=== PATIENT | female | born 1955 | race African-American/Black ===

== ENCOUNTER 2016-12-04 22:34 | Observation (INO) | payer OTHER ==
[~2016-12-04 22:34] MED LIST: ADVAI250I PO; BACT800T5 PO; LISI-360 PO; MSIR15 PO; PREV30CA36 PO; VENTAER INH; ZOFR4TAB3 SL
[2016-12-04 22:37] VITALS: BP 187/97; PULSE 97; RESP 24; TEMP 99.1; O2SAT 99
[2016-12-04] MEDS ORDERED: SYMB160A INH (23:51)
[2016-12-04] MEDS ORDERED: LISI10TA3 PO (23:51)
[2016-12-04] MEDS ORDERED: VENTAER INH (23:51)
[2016-12-05] VITALS (13 sets, daily range): BP systolic 127–186; BP diastolic 74–94; PULSE 76–96; RESP 16–28; TEMP 97.5–98.6; O2SAT 93–98
[2016-12-05] MEDS ORDERED: ASPIRIN 81 MG CHEW TAB PO ONE
[2016-12-05] MEDS ORDERED: NITROGLYCERIN 0.4 MG SL 25 TABS/BTL SL ONE
[2016-12-05] MEDS ORDERED: NITROGLYCERIN 2% OINT 1 GM PACKET TOP ONE
--- NOTE | 2016-12-05 00:02 | PD ---
HPI Chief Complaint: Chest Pain Time Seen by Provider: 23:54 Travel History International Travel<30 days: No Contact w/Intl Traveler<30days: No Traveled to known affect area: No History of Present Illness HPI The patient is a 61 year old female who presents to the [facility] emergency department with a history of 5 weeks of congestion, shortness of breath, and chest tightness that is progressively getting worse over time. She additionally reports having 2 weeks of lower extremity swelling that began 2 weeks ago. She denies having any associated redness or pain in her calves. She denies having any prior history of DVT or PE. She has had intermittent sharp chest pain. The last episode was night. Aspirin and Prilosec were no help. It lasted for 8 minutes. She has had a cough that is mainly dry however occasionally productive of yellow to green sputum. She denies any recent antibiotic use. She last had a stress test 5-6 years ago. The patient denies any history of fever, cough, congestion, neck pain, chest pain, shortness of breath, abdominal pain, vomiting, urinary symptoms, or neurologic symptoms. Diarrhea all day 3 days ago that has since resolved. The patient also reports on review of systems having urinary frequency without dysuria or urinary urgency. PCP: Dr. Peterson. [facility] Past Medical History Narrative Medical The patient's past medical history is significant for asthma, hypertension, acid reflux, arthritis, chronic pain- back. History of intubation for COPD exacerbation in 2011, continued daily tobacco use. Arthritis: Yes Asthma: Yes Autoimmune Disease: No Blood Disorders: No Anxiety: No Depression: No Heart Rhythm Problems: No Cancer: No Cardiovascular Problems: No High Cholesterol: Yes Chest Pain: No Congestive Heart Failure: No COPD: Yes Cerebrovascular Accident: No Diabetes: No Diminished Hearing: No Endocrine: No GERD: Yes Genitourinary: No Headaches: No Hepatitis: No Hiatal Hernia: No Hypertension: Yes Immune Disorder: No Kidney Stones: No Musculoskeletal: Yes (CHRONIC PAIN) Neurologic: No Psychiatric: No Reproductive: Yes (HYSTERECTOMY) Respiratory: Yes Myocardial Infarction: No Renal Failure: No Seizures: No Sickle Cell Disease: No Sleep Apnea: No Thyroid Disease: No Ulcer: No PNEUMOCCOCAL Vaccine (Year): 2 Menopausal: Yes Past Surgical History Narrative Surgical The patient's past surgical history is significant for hysterectomy, right femur and hip sx. Abdominal Surgery: No AICD: No Arteriovenous Shunt: No Cardiac Surgery: No Ear Surgery: No Endocrine Surgery: No Eye Surgery: No Genitourinary Surgery: No Gynecologic Surgery: Yes (VAG. HYSTERECTOMY 1989) Hysterectomy: Yes Insulin Pump: No Oral Surgery: Yes (TOOTH EXTRACTIONS 2000) Pacemaker: No Thoracic Surgery: No Social History Alcohol Use: No Tobacco Use: Yes (06/13 PPD) Substance Use: No Allergies-Medications (Allergen,Severity, Reaction): Coded Allergies: Solu-Medrol (Verified Allergy, Severe, Respiratory Failure, vomiting, 12/04) Reported Meds & Prescriptions Reported Meds & Active Scripts Active Prednisone 20 Mg Tab 20 Mg PO BID Levaquin (Levofloxacin) 500 Mg Tablet 1 Tab PO Q DAY 9 Days Reported Lisinopril 10 Mg Tab 10 Mg PO DAILY Symbicort Inh (Budesonide/Formoterol Fumarate) 160-4.5 Mcg/Act Aero 2 Puff INH Q12HR Ventolin Hfa 18 GM Inh (Albuterol Sulfate) 90 Mcg/Act Aer 2 Puff INH Q4H PRN Review of Systems Except as stated in HPI: all other systems reviewed are Neg General / Constitutional: Positive: Fever, Chills Eyes: No: Visual changes HENT: Positive: Congestion, No: Headaches Cardiovascular: Positive: Chest Pain or Discomfort, Dyspnea on exertion, Edema Respiratory: Positive: Cough, Shortness of Breath Gastrointestinal: Positive: Nausea, Vomiting, Diarrhea, No: Abdominal Pain Genitourinary: Positive: Frequency, No: Dysuria Musculoskeletal: No: Pain Skin: No Rash Neurologic: No: Weakness Psychiatric: No: Depression Endocrine: No: Polydipsia Hematologic/Lymphatic: No: Easy Bruising Physical Exam Narrative General: The patient is a well-developed well-nourished female in no acute distress. Head and Neck exam: Head is normocephalic atraumatic. Eyes: EOMI, pupils are equal round and reactive to light. Nose: Midline septum with pink mucous membranes Mouth: Dentition unremarkable. Moist mucus membranes. Posterior oropharynx is not erythematous. No tonsillar hypertrophy. Uvula midline. Airway patent. Neck: No palpable lymphadenopathy. No nuchal rigidity. No thyromegaly. Cardiovascular: Regular rate and rhythm without murmurs, gallops, or rubs. No pulse deficit to the extremities and simultaneous auscultation and palpation of her radial artery. Lungs: The patient has equal breath sounds bilaterally. The patient has soft expiratory wheezes audible throughout bilateral lung keating, no crackles or rhonchi. No accessory muscle use. No paroxysmal abdominal breathing. No tripoding. Abdomen: Soft, without tenderness to palpation in all 4 quadrants of the abdomen. No guarding, rebound, or rigidity. Normal bowel sounds are audible. No tenderness on palpation of McBurney's point. Negative Carroll's sign. Extremities: No clubbing or cyanosis. The patient has trace to 1+ pitting edema bilateral lower stomach. 2+ pulses in all 4 extremities. No calf tenderness on palpation. Negative Homans sign. Back: No costovertebral angle tenderness to palpation. Neurologic Exam: Grossly nonfocal. Skin Exam: No rash noted. Intact skin that is warm and dry. Data Data Last Documented VS Vital Signs Date Time Temp Pulse Resp B/P Pulse Ox O2 Delivery O2 Flow Rate FiO2 12/04/16 22:37 99.1 97 24 187/97 99 Orders Electrocardiogram (12/04/16 23:55) B-Type Natriuretic Peptide (12/04/16 23:55) Ckmb (Isoenzyme) Profile (12/04/16 23:55) Complete Blood Count With Diff (12/04/16 23:55) Comprehensive Metabolic Panel (12/04/16 23:55) D-Dimer (12/04/16 23:55) Magnesium (Mg) (12/04/16 23:55) Prothrombin Time / Inr (Pt) (12/04/16 23:55) Act Partial Throm Time (Ptt) (12/04/16 23:55) Troponin I (12/04/16 23:55) Lipase (12/04/16 23:55) Chest, Single Ap (12/04/16 23:55) Ecg Monitoring (12/04/16 23:55) Bilateral Bp Monitoring (12/04/16 23:55) Iv Access Insert/Monitor (12/04/16 23:55) Oximetry (12/04/16 23:55) Oxygen Administration (12/04/16 23:55) Aspirin Chew (Aspirin Chew) (12/05/16 00:00) Nitroglycerin 2% Oint (Nitroglycerin 2% (12/05/16 00:00) Sodium Chloride 0.9% Flush (Ns Flush) (12/05/16 00:00) Nitroglycerin Sl (Nitrostat Sl) (12/05/16 00:00) Sodium Chloride 0.9% Flush (Ns Flush) (12/05/16 00:45) Methylprednisolone So Succ Inj (Solumedr (12/05/16 00:45) Albuterol-Ipratropium Neb (Duoneb Neb) (12/05/16 00:45) Levofloxacin 750 Mg Premix Inj (Levaquin (12/05/16 00:45) CKMB (12/05/16 00:15) CKMB% (12/05/16 00:15) Admit Order (Ed Use Only) (12/05/16 02:15) Labs Laboratory Tests Test 12/05/16 00:15 White Blood Count 7.4 TH/MM3 Red Blood Count 4.04 MIL/MM3 Hemoglobin 12.1 GM/DL Hematocrit 35.7 % Mean Corpuscular Volume 88.4 FL Mean Corpuscular Hemoglobin 29.9 PG Mean Corpuscular Hemoglobin 33.9 % Concent Red Cell Distribution Width 13.7 % Platelet Count 253 TH/MM3 Mean Platelet Volume 8.9 FL Neutrophils (%) (Auto) 56.5 % Lymphocytes (%) (Auto) 27.4 % Monocytes (%) (Auto) 7.9 % Eosinophils (%) (Auto) 7.3 % Basophils (%) (Auto) 0.9 % Neutrophils # (Auto) 4.2 TH/MM3 Lymphocytes # (Auto) 2.0 TH/MM3 Monocytes # (Auto) 0.6 TH/MM3 Eosinophils # (Auto) 0.5 TH/MM3 Basophils # (Auto) 0.1 TH/MM3 CBC Comment DIFF FINAL Differential Comment Prothrombin Time 10.2 SEC Prothromb Time International 0.9 RATIO Ratio Activated Partial 26.6 SEC Thromboplast Time D-Dimer Quantitative (PE/DVT) LESS THAN 0.19 MG/L FEU Sodium Level 143 MEQ/L Potassium Level 3.5 MEQ/L Chloride Level 106 MEQ/L Carbon Dioxide Level 31.2 MEQ/L Anion Gap 6 MEQ/L Blood Urea Nitrogen 13 MG/DL Creatinine 0.91 MG/DL Estimat Glomerular Filtration 77 ML/MIN Rate Random Glucose 113 MG/DL Calcium Level 9.1 MG/DL Magnesium Level 2.1 MG/DL Total Bilirubin 0.2 MG/DL Aspartate Amino Transf 12 U/L (AST/SGOT) Alanine Aminotransferase 18 U/L (ALT/SGPT) Alkaline Phosphatase 108 U/L Total Creatine Kinase 131 U/L Creatine Kinase MB 0.8 NG/ML Troponin I LESS THAN 0.02 NG/ML B-Type Natriuretic Peptide 15 PG/ML Total Protein 7.1 GM/DL Albumin 3.4 GM/DL Lipase 204 U/L MDM Medical Decision Making Medical Screen Exam Complete: Yes Emergency Medical Condition: Yes Medical Record Reviewed: Yes Differential Diagnosis Acute coronary syndrome, versus COPD exacerbation, versus pneumonia, versus new- onset congestive heart failure, versus pulmonary embolism Narrative Course During the course of the patients emergency department visit, the patients history, examination, and differential diagnosis were reviewed with the patient. The patient had IV access obtained and blood work sent for analysis. The patient was placed on a desk monitor with oximetry and blood pressure monitoring. The patient had an EKG done on arrival. The patient's EKG reveals a sinus rhythm heart rate of 82, nonspecific T-wave abnormalities, no acute ST segment elevation or depression. The patient was initially provided aspirin 162 mg by mouth 1, sublingual nitroglycerin 1, nitroglycerin 1 inch the chest wall. The patient has a history of an allergy to Solu-Medrol, however she has tolerated prednisone while in the past. She was given prednisone 40 mg by mouth 1, Levaquin 750 IV. The patients laboratory studies were reviewed and remarkable for a white count of 7.4, hemoglobin 12.1, platelets 253 was 7.3 eosinophils, CMP is remarkable for glucose of 113, AST 12, CPK 131, MB percent 0.8, troponin I less than 0.02, BNP 15, lipase 204, PT PTT within normal limits, d-dimer less than 0.19 decreased the likelihood of pulmonary embolism in this patient with no other significant risk factors. Radiology studies were reviewed and remarkable for a chest x-ray that shows no definite infiltrate, symmetric aeration of the lungs. The patient on reexamination reports feeling improved. Regarding the patient's intermittent sharp chest pain she was offered admission to the chest pain center for rule out serial cardiac enzyme protocol followed by stress testing as she denies having any stress testing done in the last 5-6 years. She was agreeable with the plan to proceed with chest pain center admission. The patients results were discussed with the patient, including the plan of care. I explained that further testing and/ or monitoring is indicated based on the patients history, examination, and/ or laboratory findings. Therefore, I recommended admission for additional evaluation. The patient expressed understanding and was agreeable with this plan. The patient was admitted to the hospital in stable condition and sent to a bed under the care of the chest pain center. Diagnosis Primary Impression: Chest pain, rule out acute myocardial infarction Additional Impression: COPD exacerbation Admitting Information Admitting Physician Requests: Observation Scripts Prednisone 20 Mg Tab20 Mg PO BID #10 TAB Ref 0 Prov:Sandra Jacinto MD 12/05/16 Levofloxacin (Levaquin)500 Mg Tablet1 Tab PO q day 9 Days Prov:Sandra Jacinto MD 12/05/16 Sandra Jacinto MD Dec 05, 2016 00:01
--- NOTE | 2016-12-05 00:20 | RADRPT ---
EXAM DATE/TIME: 12/04/2016 23:52 [facility] COMPARISON: CHEST SINGLE AP, June 16, 2013, 21:32. CHEST SINGLE AP, November 10, 2013, 20:39. INDICATIONS : Chest pain and difficulty breathing x 1 week. MEDICAL HISTORY : Chronic obstructive pulmonary disease. Gastroesophageal reflux disease. Hypertension. Asthma SURGICAL HISTORY : Hysterectomy. ENCOUNTER: Initial ACUITY: 1 week PAIN SCORE: 7/10 LOCATION: Bilateral chest FINDINGS: A single view of the chest demonstrates the lungs to be symmetrically aerated without evidence of mas s, infiltrate or effusion. The cardiomediastinal contours are unremarkable. Osseous structures are intact. Image quality is compromised by body habitus. CONCLUSION: No definite infiltrates seen. Symmetric aeration of the lungs. Kamar Blake MD on December 05, 2016 at 0:17 Board Certified Radiologist. This report was verified electronically.
[2016-12-05 00:34] LABS: AUTOMATED NEUTROPHIL # 4.2 TH/MM3 (1.8-7.7); BASOPHIL # 0.1 TH/MM3 (0-0.2); BASOPHIL % 0.9 % (0.0-2.0); EOSINOPHIL # 0.5 TH/MM3 (0-0.4); EOSINOPHIL % 7.3 % (0.0-4.0); HEMATOCRIT 35.7 % (35.0-46.0); HEMO FLAGS DIFF FINAL; LYMPH % 27.4 % (9.0-44.0); MEAN CELL VOLUME 88.4 FL (80.0-100.0); MEAN CORPUSCULAR HEMOGLOBIN 29.9 PG (27.0-34.0); MEAN CORPUSCULAR HGB CONC 33.9 % (32.0-36.0); MONO % 7.9 % (0.0-8.0); NEUT % 56.5 % (16.0-70.0); PLATELET COUNT 253 TH/MM3 (150-450); RED BLOOD COUNT 4.04 MIL/MM3 (4.00-5.30); RED CELL DISTRIBUTION WIDTH 13.7 % (11.6-17.2); WHITE BLOOD COUNT 7.4 TH/MM3 (4.0-11.0)
[2016-12-05 00:45] LABS: APTT (PATIENT) 26.6 SEC (24.3-30.1); INTERNATIONAL NORMALIZED RATIO 0.9 RATIO; PROTHROMBIN TIME - PATIENT 10.2 SEC (9.8-11.6)
[2016-12-05] MEDS ORDERED: LEVOFLOXACIN 750 MG PREMIX INJ 150 ML IV ONE (00:45)
[2016-12-05] MEDS ORDERED: SODIUM CHLORIDE 0.9% FLUSH 10 ML FLUSH IVF PRN (00:45)
[2016-12-05] MEDS ORDERED: methylPREDNISolone SOD SUCC 125 MG/2 ML VIAL IVP ONE (00:45)
[2016-12-05 00:53] LABS: ANION GAP 6 MEQ/L (5-15); AST (GOT) 12 U/L (15-37); BICARBONATE 31.2 MEQ/L (21.0-32.0); BLOOD UREA NITROGEN 13 MG/DL (7-18); CHLORIDE 106 MEQ/L (98-107); GLOMERULAR FILTRATION RATE 77 ML/MIN (>89); MAGNESIUM 2.1 MG/DL (1.5-2.5); POTASSIUM 3.5 MEQ/L (3.5-5.1); SODIUM (NA) 143 MEQ/L (136-145)
[2016-12-05] MEDS: SODIUM CHLORIDE 0.9% FLUSH 10 ML FLUSH IVF PRN ×2 (00:54→02:27)
[2016-12-05] MEDS: RESP: ALBUTEROL 2.5 MG/IPRATROPIUM 0.5 MG NEB (SCH) INH ×2 (00:55→00:56)
[2016-12-05 00:58] LABS: ALKALINE PHOSPHATASE 108 U/L (45-117); ALT (GPT) 18 U/L (10-53); CREATINE KINASE 131 U/L (26-192); TOTAL BILIRUBIN ADULT 0.2 MG/DL (0.2-1.0)
[2016-12-05 01:11] LABS: CKMB 0.8 NG/ML (0.5-3.6)
[2016-12-05] MEDS ORDERED: LEVA500T20 PO (02:17)
[2016-12-05] MEDS ORDERED: PRED20 PO (02:19)
[2016-12-05] MEDS ORDERED: predniSONE 20 MG TAB PO ONE (02:30)
[2016-12-05] MEDS ORDERED: SODIUM CHLORIDE 0.9% FLUSH 10 ML FLUSH IV FLUSH PRN (03:45)
[2016-12-05] MEDS ORDERED: ONDANSETRON HCL 4 MG/2 ML VIAL IV PRN (03:45)
[2016-12-05] MEDS ORDERED: ACETAMINOPHEN 500 MG CPLT PO PRN (03:45)
[2016-12-05 04:32] LABS: CREATINE KINASE 116 U/L (26-192)
[2016-12-05 04:45] LABS: CKMB 0.7 NG/ML (0.5-3.6)
[2016-12-05 07:39] LABS: CREATINE KINASE 121 U/L (26-192)
[2016-12-05 07:51] LABS: CKMB 0.8 NG/ML (0.5-3.6)
[2016-12-05] MEDS ORDERED: RESP: ALBUTEROL 2.5 MG/IPRATROPIUM 0.5 MG NEB (PRN) INH (08:00)
[2016-12-05] MEDS ORDERED: RESP: ALBUTEROL 2.5 MG/IPRATROPIUM 0.5 MG NEB (SCH) INH ONE (08:00)
[2016-12-05] MEDS ORDERED: amLODIPine BESYLATE 5 MG TAB PO SCH (09:00)
[2016-12-05] MEDS ORDERED: cloNIDine HCL 0.1 MG TAB PO PRN ×2 (09:00→11:45)
--- NOTE | 2016-12-05 09:04 | HHI.HP ---
[facility] Primary Care Physician Juan C Peterson MD Chief Complaint Shortness of breath History of Present Illness This is a 61-year-old female that presents to ED with a stated complaint of "I' m having problems with my respiratory." States that for the last 2 months she has had shortness breath wheezing and tightness in her chest. She was seen by her primary care physician Dr. Peterson and has inhalers and nebulizers. There is brief improvement in her symptoms while using these. She has an occasional cough but states it is nonproductive. States that she has had history of asthma. Patient still smokes cigarettes. She is smoking one third pack of cigarettes daily. Denies recent fevers or chills. Denies recent travel. She does not use oxygen at home. Review of Systems General: Patient denies fevers, chills recent, and recent travel HEENT: Patient denies headache, sore throat, difficulty swallowing. Cardiovascular: Has the chest discomfort as mentioned above. Denies sensation of heart beating rapidly or irregularly. No syncope. Denies diaphoresis. Respiratory: Patient has been short of breath. She has occasional nonproductive cough. She has been wheezing which is briefly improved with inhaler and nebulizer. Denies hemoptysis. GI: Patient denies nausea, vomiting, diarrhea, abdominal pain, bloody stools. Musculoskeletal: Patient denies joint pain or edema. Denies calf pain or edema. Neurovascular: Patient denies numbness, tingling, weakness in extremities. Denies headache. Endocrine: Denies polyuria and polydipsia. Hematologic: Denies easy bruising. Skin: Denies rash or itching. Past Family Social History Allergies: Coded Allergies: Solu-Medrol (Verified Allergy, Severe, Respiratory Failure, vomiting, 12/04) Past Medical History Asthma, hypertension, and tobacco abuse. Denies diabetes, CAD, and hyperlipidemia. Past Surgical History Noncontributory. Reported Medications Reported Meds & Active Scripts Active Reported Lisinopril 10 Mg Tab 10 Mg PO DAILY Symbicort Inh (Budesonide/Formoterol Fumarate) 160-4.5 Mcg/Act Aero 2 Puff INH Q12HR Ventolin Hfa 18 GM Inh (Albuterol Sulfate) 90 Mcg/Act Aer 2 Puff INH Q4H PRN Active Ordered Medications Current Medications Medications (Trade) Dose Ordered Sig/Jae Route Start Time Stop Time Status Last Admin (NS Flush) 2 ml UNSCH PRN IVF 12/05/16 00:00 12/05/16 02:27 (NS Flush) 2 ml UNSCH PRN IVF 12/05/16 00:45 (NS Flush) 2 ml UNSCH PRN IV FLUSH 12/05/16 03:45 (NS Flush) 2 ml BID IV FLUSH 12/05/16 09:00 (Tylenol) 500 mg Q4H PRN PO 12/05/16 03:45 (Zofran Inj) 4 mg Q6H PRN IV 12/05/16 03:45 (Protonix) 40 mg DAILY PO 12/05/16 09:00 (Deltasone) 20 mg BID PO 12/05/16 09:00 Family History Denies family history of CAD. Social History Patient smokes one third pack of cigarettes daily. Denies alcohol or illicit drugs. Physical Exam Vital Signs Vital Signs Date Time Temp Pulse Resp B/P Pulse Ox O2 Delivery O2 Flow Rate FiO2 12/05/16 08:48 97.5 79 18 183/94 95 12/05/16 08:23 95 21 12/05/16 06:53 97.5 78 20 186/92 94 Room Air 12/05/16 06:50 76 16 150/78 95 12/05/16 04:00 81 18 142/74 96 Room Air 12/05/16 04:00 93 12/05/16 00:00 84 18 143/78 96 Room Air 12/04/16 22:37 99.1 97 24 187/97 99 Physical Exam GENERAL: This is a well-nourished, well-developed patient, in no apparent distress. Patient speaks in clear complete sentences. Patient is pleasant. HEENT: Head is atraumatic and normocephalic. Neck is supple without lymphadenopathy and trachea is midline. No JVD or carotid bruits. CARDIOVASCULAR: Regular rate and rhythm without murmurs, gallops, or rubs. RESPIRATORY: There are expiratory wheezing with decreased air movement at the bases. Also scattered rhonchi. No rales. No use of accessory muscles. GASTROINTESTINAL: Abdomen is nontender, nondistended. Abdomen soft. No obvious pulsatile mass or bruit. No CVA tenderness. Strong femoral pulses bilaterally. Normal bowel sounds in all quadrants. MUSCULOSKELETAL: Patient is moving upper and lower extremities freely. No calf tenderness or edema, no Homans sign. Strong pulses in upper and lower extremities. NEUROLOGICAL: Patient is alert and oriented. Cranial nerves 2-12 are grossly intact. No focal deficits and speech is clear. SKIN: No rash and turgor is normal. Laboratory Laboratory Tests Test 12/05/16 12/05/16 12/05/16 00:15 04:00 06:50 White Blood Count 7.4 Red Blood Count 4.04 Hemoglobin 12.1 Hematocrit 35.7 Mean Corpuscular Volume 88.4 Mean Corpuscular Hemoglobin 29.9 Mean Corpuscular Hemoglobin 33.9 Concent Red Cell Distribution Width 13.7 Platelet Count 253 Mean Platelet Volume 8.9 Neutrophils (%) (Auto) 56.5 Lymphocytes (%) (Auto) 27.4 Monocytes (%) (Auto) 7.9 Eosinophils (%) (Auto) 7.3 Basophils (%) (Auto) 0.9 Neutrophils # (Auto) 4.2 Lymphocytes # (Auto) 2.0 Monocytes # (Auto) 0.6 Eosinophils # (Auto) 0.5 Basophils # (Auto) 0.1 CBC Comment DIFF FINAL Differential Comment Prothrombin Time 10.2 Prothromb Time International 0.9 Ratio Activated Partial 26.6 Thromboplast Time D-Dimer Quantitative (PE/DVT) LESS THAN 0.19 Sodium Level 143 Potassium Level 3.5 Chloride Level 106 Carbon Dioxide Level 31.2 Anion Gap 6 Blood Urea Nitrogen 13 Creatinine 0.91 Estimat Glomerular Filtration 77 Rate Random Glucose 113 Calcium Level 9.1 Magnesium Level 2.1 Total Bilirubin 0.2 Aspartate Amino Transf 12 (AST/SGOT) Alanine Aminotransferase 18 (ALT/SGPT) Alkaline Phosphatase 108 Total Creatine Kinase 131 116 121 Creatine Kinase MB 0.8 0.7 0.8 Troponin I LESS THAN 0.02 LESS THAN 0.02 LESS THAN 0.02 B-Type Natriuretic Peptide 15 Total Protein 7.1 Albumin 3.4 Lipase 204 Result Diagram: 12/05/16 0015 12/05/16 0015 Imaging Last 48 hours Impressions Chest X-Ray 12/04/16 [id number] Signed Impressions: Service Date/Time: Sunday, December 04, 2016 23:52 - CONCLUSION: No definite infiltrates seen. Symmetric aeration of the lungs. Kamar Blake MD Course EKGs have sinus rhythm without significant ST segment depressions or elevations. Assessment and Plan Assessment and Plan * COPD exacerbation: Patient has been seen by Dr. Jose Luis Wilson of cardiology in the chest pain center. Her symptoms to be related to respiratory issues. She was given breathing treatments and steroids in the ED. She will need around -the-clock steroid and nebulizers as well as when necessary meds to help clear up her lungs. Patient was admitted to [place] services at this time. * Hypertension: Patient states that she takes lisinopril but does not really think it is working. We will switch to amlodipine have when necessary Catapres. * Tobacco abuse: Patient has been counseled on the importance of smoking cessation. Brennan Rivas Dec 05, 2016 09:04
[2016-12-05] MEDS: PANTOPRAZOLE SOD 40 MG DELAYED RELEASE TAB PO SCH (09:16)
[2016-12-05] MEDS: SODIUM CHLORIDE 0.9% FLUSH 10 ML FLUSH IV FLUSH SCH ×2 (09:16→20:16)
[2016-12-05] MEDS: predniSONE 20 MG TAB PO SCH ×2 (09:16→20:16)
[2016-12-05] MEDS ORDERED: AZITHROMYCIN 250 MG TAB PO ONE (11:45)
--- NOTE | 2016-12-05 11:51 | HHI.PR ---
Subjective Remarks Follow-up for shortness breath. The patient reports history of shortness of breath with cough and chest tightness for the past 5 weeks. She denies any treatment other than her home inhalers. She does continue to smoke, though states she is trying to quit. She states occasionally she has a cough that is productive with yellow sputum, but is not able to cough much up. She does complain of chest discomfort whenever she coughs. She reports that in 2011 she states that Solu-Medrol "to occur under", but does state that it may have "reacted with the morphine". She does not follow with a automobile damage appraiser. Objective Vitals Vital Signs Date Time Temp Pulse Resp B/P Pulse Ox O2 Delivery O2 Flow Rate FiO2 12/05/16 08:48 97.5 79 18 183/94 95 12/05/16 08:23 95 21 12/05/16 06:53 97.5 78 20 186/92 94 Room Air 12/05/16 06:50 76 16 150/78 95 12/05/16 04:00 81 18 142/74 96 Room Air 12/05/16 04:00 93 12/05/16 00:00 84 18 143/78 96 Room Air 12/04/16 22:37 99.1 97 24 187/97 99 Result Diagram: 12/05/16 0015 12/05/16 0015 Imaging Last Impressions Chest X-Ray 12/04/16 9636 Signed Impressions: Service Date/Time: Sunday, December 04, 2016 23:52 - CONCLUSION: No definite infiltrates seen. Symmetric aeration of the lungs. Kamar Blake MD Objective Remarks GENERAL: Well-developed well-nourished. Morbidly obese. In no acute distress. Audible wheezing. SKIN: Warm and dry. No lesions noted. HEENT: Normocephalic. Pupils equal and round. Mucous membranes pink and moist. CARDIOVASCULAR: Regular rate and rhythm. No murmur appreciated. Chest wall TTP. RESPIRATORY: No accessory muscle use. Clear to auscultation. Upper respiratory expiratory wheezing. Diminished breath sounds in bilateral bases. GASTROINTESTINAL: Abdomen soft, non-tender, nondistended. Bowel sounds x4. MUSCULOSKELETAL: No obvious deformities. No clubbing or cyanosis. No edema. NEUROLOGICAL: Awake and alert. No focal neurological deficits. Moves upper and lower extremities spontaneously. Normal speech. PSYCHIATRIC: Appropriate mood and affect; insight and judgment normal. A/P Assessment and Plan 61-year-old female with past medical history of COPD, HTN who presented with shortness of breath, cough, chest tightness COPD with acute exacerbation: Chest x-ray clear. Question allergy to Solu- Medrol, tolerating prednisone, continue prednisone. Scheduled and as needed nebs. Azithromycin. Guaifenesin. Acapella. Supplemental O2 as needed. Continue home Symbicort. Chest tightness: Suspect secondary to COPD and cough. ACS ruled out per protocol with serial cardiac enzymes and EKGs. D-dimer within normal limits. Evaluated and cleared by cardiology and the chest pain center who recommended treatment for COPD and transferred hospitalist service. Hypertension: Uncontrolled. The patient was changed from lisinopril to amlodipine by cardiology. Continue amlodipine, may need increased dose. Clonidine as needed. Tobacco abuse: Patient counseled on cessation. Patient declines nicotine patch. DVT prophylaxis: Lovenox GI prophylaxis: Protonix Discharge Planning Continue to monitor for clinical improvement. Tomy Garay Dec 05, 2016 11:51
[2016-12-05] MEDS: RESP: ALBUTEROL 2.5 MG/IPRATROPIUM 0.5 MG NEB (SCH) NEB ×3 (11:59→19:09)
[2016-12-05] MEDS ORDERED: ENOXAPARIN SODIUM 40 MG/0.4 ML SYRINGE SQ SCH (12:00)
[2016-12-05] MEDS: guaiFENesin E.R. 600 MG TAB PO SCH ×2 (12:58→20:16)
[2016-12-05] MEDS ORDERED: RESP: ALBUTEROL 2.5 MG/IPRATROPIUM 0.5 MG NEB (SCH) NEB (14:00)
[2016-12-05] MEDS: BUDESONIDE-FORMOTEROL 160/4.5 MCG INHALER INH SCH (20:15)
[2016-12-06 00:10] VITALS: BP 177/89; PULSE 77; RESP 18; TEMP 98.2; O2SAT 91
[2016-12-06 00:27] VITALS: PULSE 82
[2016-12-06 04:38] VITALS: BP 173/95; PULSE 82; RESP 18; TEMP 98; O2SAT 93
[2016-12-06] MEDS: RESP: ALBUTEROL 2.5 MG/IPRATROPIUM 0.5 MG NEB (SCH) NEB (07:30)
[2016-12-06 07:32] VITALS: O2SAT 97
--- NOTE | 2016-12-06 07:43 | EKG ---
Date Performed: 12/05/2016 Time Performed: 06:46:35 PTAGE: 61 years EKG: Sinus rhythm NONSPECIFIC T-WAVE ABNORMALITY BORDERLINE ECG PREVIOUS TRACING : 12/05/2016 00.18 DOCTOR: Casey Chavez Interpretating Date/Time 12/06/2016 07:41:38
--- NOTE | 2016-12-06 07:45 | EKG ---
Date Performed: 12/05/2016 Time Performed: 04:11:02 PTAGE: 61 years EKG: Sinus rhythm NONSPECIFIC T-WAVE ABNORMALITY BORDERLINE ECG PREVIOUS TRACING : 02/06/2016 23.47 DOCTOR: Casey Chavez Interpretating Date/Time 12/06/2016 07:42:34
--- NOTE | 2016-12-06 07:46 | EKG ---
Date Performed: 12/05/2016 Time Performed: 00:18:17 PTAGE: 61 years EKG: Sinus rhythm NONSPECIFIC T-WAVE ABNORMALITY BORDERLINE ECG NO PREVIOUS TRACING DOCTOR: Casey Chavez Interpretating Date/Time 12/06/2016 07:43:29
[2016-12-06 08:00] VITALS: PULSE 75
[2016-12-06 08:24] VITALS: BP 165/112; PULSE 81; RESP 24; TEMP 98; O2SAT 92
[2016-12-06] MEDS: SODIUM CHLORIDE 0.9% FLUSH 10 ML FLUSH IV FLUSH SCH (08:36)
[2016-12-06] MEDS: PANTOPRAZOLE SOD 40 MG DELAYED RELEASE TAB PO SCH (08:36)
[2016-12-06] MEDS: guaiFENesin E.R. 600 MG TAB PO SCH (08:36)
[2016-12-06] MEDS: predniSONE 20 MG TAB PO SCH (08:37)
[2016-12-06] MEDS: BUDESONIDE-FORMOTEROL 160/4.5 MCG INHALER INH SCH (08:37)
--- NOTE | 2016-12-06 08:37 | HHI.PR ---
Subjective Remarks Follow-up for COPD exacerbation. The patient reports that her breathing is back to normal today. No further wheezing. She continues to have cough, but states that it is less productive now. Her cough is still with yellow sputum. She reports no further chest tightness. She does have a nebulizer machine at home, but does need refills. Objective Vitals Vital Signs Date Time Temp Pulse Resp B/P Pulse Ox O2 Delivery O2 Flow Rate FiO2 12/06/16 08:24 98.0 81 24 165/112 92 12/06/16 07:32 97 Nasal Cannula 21 12/06/16 04:38 98.0 82 18 173/95 93 12/06/16 00:27 82 12/06/16 00:10 98.2 77 18 177/89 91 12/05/16 20:50 91 12/05/16 19:43 97.7 93 18 159/89 96 12/05/16 19:14 98 21 12/05/16 16:21 98.6 92 20 145/79 95 12/05/16 15:25 90 12/05/16 13:36 20 12/05/16 11:49 97.6 92 28 127/84 96 12/05/16 08:48 97.5 79 18 183/94 95 Result Diagram: 12/05/16 0015 12/05/16 0015 Imaging Last Impressions Chest X-Ray 12/04/16 8957 Signed Impressions: Service Date/Time: Sunday, December 04, 2016 23:52 - CONCLUSION: No definite infiltrates seen. Symmetric aeration of the lungs. Kamar Blake MD Objective Remarks GENERAL: Well-developed well-nourished. Morbidly obese. In no acute distress. SKIN: Warm and dry. No lesions noted. HEENT: Normocephalic. Pupils equal and round. Mucous membranes pink and moist. CARDIOVASCULAR: Regular rate and rhythm. No murmur appreciated. RESPIRATORY: No accessory muscle use. Clear to auscultation. Improved aeration. No wheezing. GASTROINTESTINAL: Abdomen soft, non-tender, nondistended. Bowel sounds x4. MUSCULOSKELETAL: No obvious deformities. No clubbing or cyanosis. No edema. NEUROLOGICAL: Awake and alert. No focal neurological deficits. Moves upper and lower extremities spontaneously. Normal speech. PSYCHIATRIC: Appropriate mood and affect; insight and judgment normal. A/P Assessment and Plan 61-year-old female with past medical history of COPD, HTN who presented with shortness of breath, cough, chest tightness COPD with acute exacerbation: Chest x-ray clear. Continue prednisone pulse dose. Scheduled and as needed nebs. Azithromycin. Guaifenesin. Acapella. Supplemental O2 as needed. Continue home Symbicort. Chest tightness: Suspect secondary to COPD and cough. ACS ruled out per protocol with serial cardiac enzymes and EKGs. D-dimer within normal limits. Evaluated and cleared by cardiology and the chest pain center who recommended treatment for COPD and transferred hospitalist service. Hypertension: Not optimally controlled, but improved from admission. The patient was changed from lisinopril to amlodipine by cardiology. Continue amlodipine, increase dose. Outpatient PCP follow-up for continued BP monitoring and medication adjustments. Tobacco abuse: Patient counseled on cessation. Patient declined nicotine patch. DVT prophylaxis: Lovenox GI prophylaxis: Protonix Discharge Planning Discharge patient to home Condition on discharge: Improved Heart healthy Diet as tolerated Regular activity Rx written: Duo nebs, prednisone, azithromycin, amlodipine Follow-up with primary care physician Tomy Garay Dec 06, 2016 08:37
[2016-12-06] MEDS ORDERED: AMLO10 PO (08:40)
[2016-12-06] MEDS ORDERED: PRED20 PO (08:40)
[2016-12-06] MEDS ORDERED: IPRASOL INH (08:40)
[2016-12-06] MEDS ORDERED: AZIT250T3 PO (08:40)
[2016-12-06] MEDS ORDERED: AZITHROMYCIN 250 MG TAB PO SCH (09:00)
== END 2016-12-06 11:16 | disposition home or self-care (01) ==
LOC: NEPC 22:34 → NEDA 12-05 02:17 → NEPGCP 12-05 07:36
PROVIDERS: ADMIT Hospitalist; ATTEND Hospitalist
DX: J44.1 Chronic obstructive pulmonary disease with (acute) exacerbation (principal); R07.9 Chest pain, unspecified; R11.2 Nausea with vomiting, unspecified; R19.7 Diarrhea, unspecified; M79.89 Other specified soft tissue disorders; R35.0 Frequency of micturition; I10 Essential (primary) hypertension; E78.00 Pure hypercholesterolemia, unspecified; K21.9 Gastro-esophageal reflux disease without esophagitis; M54.9 Dorsalgia, unspecified; G89.29 Other chronic pain; M19.90 Unspecified osteoarthritis, unspecified site; F17.210 Nicotine dependence, cigarettes, uncomplicated; Z79.899 Other long term (current) drug therapy
CPT/HCPCS: 71010; 80053; 82550; 82552; 83690; 83735; 83880; 84484; 85025; 85379; 85610; 85730; 93005; 94640; 94664; 94667; 94668; 96365; 99285; G0378; J1650; J1956; J7512

== ENCOUNTER 2018-05-17 21:29 | Observation (INO) ==
[2018-05-17] MEDS ORDERED: hydrALAZINE HCl Inj 20 MG/ML Vial IV.PUSH ONE (21:55)
--- NOTE | 2018-05-17 22:07 | ED ---
HPI General Chief Complaint: Respiratory Symptoms Stated Complaint: respiratory Time Seen by Provider: 05/17/18 21:40 History of Present Illness This is a 62-year-old female with a history of hypertension, "asthma", who presents today with complaints of severe shortness of breath times several days. Patient states it started 2 months ago with a cough. She states that she has had progressive shortness of breath despite using her nebulizer/MDI's. She denies any fevers, chills. She denies any chest pain, chest pressure. She does report cough however denies any production. Her blood pressure was noted to be over 200 systolic, 100 diastolic. She states that she has not been taking her lisinopril as prescribed. When asked why, patient states that she does not want to end up like her sister who . The patient is allergic to Solu-Medrol. She states that she is not taking any medication for quite some time. She could not quantitate how long but states she wanted to be honest. Related Data Home Medications Medication Instructions Recorded Confirmed No Known Home Medications 05/17/18 05/17/18 Allergies Allergy/AdvReac Type Severity Reaction Status Date / Time methylprednisolone Allergy Severe Respiratory Verified 05/17/18 21:43 Failure, vomiting Review of Systems ROS: all other systems reviewed are negative Constitutional Reports system reviewed and no additional complaints, except as docu Eyes Denies blurry vision and Denies diplopia ENT Denies system reviewed and no additional complaints, except as docu Cardiovascular Denies chest pain, Reports dyspnea and Denies orthopnea Respiratory Reports chest congestion, Reports cough and Reports dyspnea Gastrointestinal Denies abdominal pain, Denies nausea and Denies vomiting Genitourinary Denies urinary frequency, Denies dysuria and Denies urinary urgency Musculoskeletal Denies back pain and Denies neck pain Integumentary/Breasts Reports system reviewed and no additional complaints, except as docu Neurologic Reports system reviewed and no additional complaints, except as docu, Denies dizziness, Denies headache(s) and Denies loss of vision [facility] Medical History Medical History Asthma (Acute) History of hysterectomy (Acute) Hypertension (Acute) Social History Social History Smoking Status: Current every day smoker Tobacco Type: Cigarettes How Often Do You Have a Drink Containing Alcohol: Never Recent Travel in [facility] within the Last 8 Weeks: No Recent Out of Country Travel within the Last 8 Weeks: No Immunization History Tetanus Immunization: Unsure Exam Narrative Exam Narrative: GENERAL: Well-developed well-nourished female in mild to moderate respiratory distress. SKIN: Focused skin assessment warm/dry. HEAD: Atraumatic. Normocephalic. EYES: Pupils equal and round. No scleral icterus. No injection or drainage. ENT: No nasal bleeding or discharge. Mucous membranes pink and moist. NECK: Trachea midline. Supple. Could not appreciate JVD secondary to the patient's large habitus CARDIOVASCULAR: Sinus tachycardia with a rate of 104. No obvious murmur appreciated. RESPIRATORY: Diffuse expiratory rhonchi in all 4 lung keating. No obvious rales appreciated. GASTROINTESTINAL: Abdomen soft, obese, non-tender, nondistended. No pulsatile masses on palpation. MUSCULOSKELETAL: No obvious deformities. No clubbing. No cyanosis. Bilateral lower extremity edema. This may be secondary to the patient's habitus. No pitting noted on pressing of the pretibial areas. NEUROLOGICAL: Awake and alert. No obvious cranial nerve deficits. Motor grossly within normal limits. Normal speech. Course Initial Documented Vital Signs Temperature 98.3 F 05/17/18 21:30 Pulse Rate 116 H 05/17/18 21:30 Respiratory Rate 26 H 05/17/18 21:30 Blood Pressure 247/133 H 05/17/18 21:30 Pulse Oximetry 93 L 05/17/18 21:30 Last Documented Vital Signs Temperature 98.3 F 05/17/18 21:30 Pulse Rate 104 H 05/17/18 23:00 Respiratory Rate 20 05/17/18 23:00 Blood Pressure 166/79 H 05/17/18 23:00 Pulse Oximetry 97 05/17/18 23:00 Medical Decision Making [facility] Narrative Medical decision making narrative: 62-year-old female with a history of hypertension, asthma, presents today with complaints of shortness of breath. Patient states it started 2 months ago with a cough and is been worsening. Patient had diffuse expiratory wheezes. She started on a DuoNeb followed by 2 albuterol nebulizers. Chest x-ray shows no evidence of acute infiltrate. Cardiac enzymes are within normal limits. EKG showed no evidence of acute ST elevation or depression. The patient did have a blood pressure of 237/133. She reports that she was taking lisinopril 10 mg tablets daily however has not taken them in some time. She had some chest tightness however remarked this was likely secondary to the shortness of breath. She has been given hydralazine , 20 mg IV x1 dose. Her blood pressure is currently 166/79. She will be admitted for blood pressure control and rule out. Her kidney function who is also abnormal and that her creatinine was elevated from previous. This is likely secondary to uncontrolled hypertension. Her blood sugar was also in the 140s. Case was discussed with Dr. Moore. Patient will be placed under observation. Medical Screen Exam Complete: Yes Emergency Medical Condition: Yes Differential Diagnosis Differential Diagnosis: Asthma exacerbation versus COPD versus CHF versus hypertensive urgency Lab Data Result diagrams: 05/17/18 22:08 05/17/18 22:08 Lab Results 05/17/18 05/17/18 05/17/18 Range/Units 22:08 22:08 22:08 WBC 7.1 (4.0-11.0) th/mm3 RBC 4.17 (4.00-5.30) mil/mm3 Hgb 12.6 (11.6-15.3) gm/dL Hct 37.2 (35.0-46.0) % MCV 89.2 (80.0-100.0) fL MCH 30.3 (27.0-34.0) pg MCHC 34.0 (32.0-36.0) % RDW 14.0 (11.6-17.2) % Plt Count 228 (150-450) th/mm3 MPV 9.5 (7.0-11.0) fL Neut % (Auto) 87.9 H (16.0-70.0) % Lymph % (Auto) 9.8 (9.0-44.0) % Cook % (Auto) 1.1 (0.0-8.0) % Eos % (Auto) 0.3 (0.0-4.0) % Baso % (Auto) 0.9 (0.0-2.0) % Neut # (Auto) 6.2 (1.8-7.7) th/mm3 Lymph # (Auto) 0.7 L (1.0-4.8) th/mm3 Cook # (Auto) 0.1 (0.0-0.9) th/mm3 Eos # (Auto) 0.0 (0.0-0.4) th/mm3 Baso # (Auto) 0.1 (0.0-0.2) th/mm3 WBC Differential . Differential Comment Auto diff final Sodium 138 (136-145) meq/L Potassium 4.3 (3.5-5.1) meq/L Chloride 104 (98-107) meq/L Carbon Dioxide 29.1 (21.0-32.0) meq/L Anion Gap 5 (5-15) meq/L BUN 14 (7-18) mg/dL Creatinine 1.15 H (0.50-1.00) mg/dL Estimated GFR 58 L (>89) mL/min Random Glucose 149 H (74-106) mg/dL Calcium 8.7 (8.5-10.1) mg/dL Total Bilirubin 0.2 (0.2-1.0) mg/dL AST 15 (15-37) U/L ALT 22 (10-53) U/L Alkaline Phosphatase 120 H (45-117) U/L Total Creatine Kinase 140 (26-192) U/L CK-MB (CK-2) Less than 1.0 (0.5-3.6) ng/mL Troponin I Less than 0.02 L (0.02-0.05) ng/mL B-Natriuretic Peptide 34 (0-100) pg/mL Total Protein 8.2 (6.4-8.2) g/dL Albumin 3.7 (3.4-5.0) g/dL Imaging Data Radiologist's impression: Chest X-Ray 05/17/18 21:56 CONCLUSION: No evidence of acute cardiopulmonary disease. Discharge Plan Discharge Disposition Patient Disposition: ED Admit(ED Internal Use Only) Discharge Order Discharge Orders: ED Use Only Admit Order (Routine); Ordered 05/17/18 Ordered By: Piotr Cabrera Discharge Details Diagnosis: Hypertensive urgency, Asthma exacerbation, Acute kidney injury (nontraumatic), Hyperglycemia Physicians Team ED Provider: Piotr Cabrera Primary Care Provider: UNKNOWN, Attending Provider: Shivani Lopez Status ED Status: With Doctor
--- NOTE | 2018-05-17 22:17 | XR ---
EXAM DATE: 05/17/2018 10:08 PM EST AGE/SEX: 62 years / Female INDICATIONS: Dyspnea CLINICAL DATA: This is the patient's initial encounter. Patient reports that signs and symptoms have been present for 2 months and indicates a pain score of 0/10. MEDICAL/SURGICAL HISTORY: . Chronic obstructive pulmonary disease. Gastroesophageal reflux dise ase. Hypertension. Asthma None. COMPARISON: [facility] [place]ST SINGLE AP, 12/04/2016. . FINDINGS: A single AP view of the chest demonstrates the lungs to be symmetrically aerated without evidence of mass, infiltrate or effusion. The cardiomediastinal contours are unremarkable. Osseous structures a re intact. CONCLUSION: No evidence of acute cardiopulmonary disease. Electronically signed by: Juan C Petersen MD 05/17/2018 10:15 PM EST
[2018-05-17 22:27] LABS: Baso # (Auto) 0.1 th/mm3 (0.0-0.2); Baso % (Auto) 0.9 % (0.0-2.0); Eos % (Auto) 0.3 % (0.0-4.0); Hematocrit 37.2 % (35.0-46.0); Hemoglobin 12.6 gm/dL (11.6-15.3); Lymph # (Auto) 0.7 th/mm3 (1.0-4.8); Lymph % (Auto) 9.8 % (9.0-44.0); Mean Corpuscular Hemoglobin 30.3 pg (27.0-34.0); Mean Corpuscular Volume 89.2 fL (80.0-100.0); Mean Platelet Volume 9.5 fL (7.0-11.0); Mono # (Auto) 0.1 th/mm3 (0.0-0.9); Mono % (Auto) 1.1 % (0.0-8.0); Neut # (Auto) 6.2 th/mm3 (1.8-7.7); Neut % (Auto) 87.9 % (16.0-70.0); Platelet Count 228 th/mm3 (150-450); Red Blood Count 4.17 mil/mm3 (4.00-5.30); White Blood Count 7.1 th/mm3 (4.0-11.0)
[2018-05-17 22:42] LABS: Alanine Aminotransferase 22 U/L (10-53); Albumin 3.7 g/dL (3.4-5.0); Anion Gap 5 meq/L (5-15); Aspartate Aminotransferase 15 U/L (15-37); Blood Urea Nitrogen 14 mg/dL (7-18); Calcium 8.7 mg/dL (8.5-10.1); Carbon Dioxide 29.1 meq/L (21.0-32.0); Chloride 104 meq/L (98-107); Glomerular Filtration Rate 58 mL/min (>89); Glucose,Random 149 mg/dL (74-106); Potassium 4.3 meq/L (3.5-5.1); Sodium 138 meq/L (136-145)
[2018-05-17 22:59] LABS: Alkaline Phosphatase 120 U/L (45-117); Creatine Kinase 140 U/L (26-192); Total Protein 8.2 g/dL (6.4-8.2)
[2018-05-17] MEDS ORDERED: Bisacodyl 10 MG Supp RECTAL PRN (23:53)
[2018-05-17] MEDS ORDERED: Acetaminophen 325 MG Tablet PO PRN (23:53)
[2018-05-17] MEDS ORDERED: Morphine Sulfate Inj 2 MG/ML Vial IV.PUSH PRN (23:56)
[2018-05-18] MEDS ORDERED: Morphine Sulfate Inj 2 MG/ML Vial IV.PUSH PRN (00:06)
[2018-05-18] MEDS ORDERED: Sodium Chlor 0.9% Inj 500 ML IV.SIG SCH (01:00)
--- NOTE | 2018-05-18 01:53 | P.HPIM ---
History of Present Illness Primary Care Physician: UNKNOWN History of Present Illness: This is a 62-year-old female with a PMH of HTN, Asthma and Tobacco Abuse who presented to ER with complaints of SOB, cough and chest tightness x3 days. Denies fever/chills. Has been using home Nebulizer/MDI w/ no improvement. On arrival, BP 207/152, HR 106, O2 sat 95% on RA, Afebrile. CBC unremarkable. Creatinine 1.15, previously 0.91 on 12/05/2016. Troponin negative. CXR with no acute findings. Reports taking Lisinopril 10mg, however has been non-compliant w/ medications for several months. On exam, noted to have diffuse wheezing, states she is allergic to Solu-Medrol IV, states she's taken Prednisone PO in the past, however believes she's had itching afterwards. S/p Albuterol and DuoNeb in ER w/ improvement. Given Hydralazine 20mg IV x1, BP now 116/77. - Diagnosis (1) HTN (hypertension) (2) KEYANA (acute kidney injury) (3) Asthma (4) Chest pain (5) Tobacco abuse Review of Systems PAST FAMILY HISTORY: Reviewed. Positive for DM and CAD. All other systems reviewed negative except as stated in HPI [facility] - History History Provided By: Patient - Medical History Medical History: Medical History (Last Updated 05/17/18 @ 21:33 by Radha Berry RN) Asthma History of hysterectomy Hypertension - Tobacco History Tobacco Use In Past 30 Days: Yes Smoking Status: Current every day smoker Tobacco Type: Cigarettes - Alcohol History How Often Do You Have a Drink Containing Alcohol: Never - Travel History Recent Travel in the [place] Within the Last 8 Weeks: No Recent Travel Out of the Country Within the Last 8 Weeks: No - Immunization History Tetanus Immunization: Unsure Medications and Allergies Active Medications: Active Medications Acetaminophen (Tylenol) 650 mg PO Q4H PRN PRN Reason: Temp > 100.4 Hydrocodone Bitart/Acetaminophen (Marcellus 5/325) 1 tab PO Q4H PRN PRN Reason: PAIN 3-5 Al Hydroxide/Mg Hydroxide (Milk Of Magnesia Liq) 30 ml PO Q12H PRN PRN Reason: Mild Constipation Albuterol (Albuterol Neb (Prn)) 2.5 mg NEB Q4HR NEB PRN PRN Reason: SOB/WHEEZING Aspirin (Ecotrin) 81 mg PO DAILY COUNTS INCLUDE 234 BEDS AT THE [facility] Bisacodyl (Dulcolax Supp) 10 mg RECTAL DAILY PRN PRN Reason: SEVERE CONSITIPATION Enoxaparin Sodium (Lovenox Inj) 40 mg SQ Q24H GOOD Lactulose (Lactulose Liq) 30 ml PO DAILY PRN PRN Reason: SEVERE CONSITIPATION Metoprolol Tartrate (Lopressor) 25 mg PO BID COUNTS INCLUDE 234 BEDS AT THE [facility] Morphine Sulfate (Morphine Inj) 2 mg IV.PUSH Q4H PRN PRN Reason: PAIN 6-10 Nitroglycerin (Nitro-Bid 2% Oint) 0.5 inch TOPICAL Q6HR PRN PRN Reason: CHEST PAIN Ondansetron HCl (Zofran Inj) 4 mg IV.PUSH Q6H PRN PRN Reason: NAUSEA OR VOMITING Pravastatin Sodium (Pravachol) 40 mg PO DAILY COUNTS INCLUDE 234 BEDS AT THE [facility] Senna/Docusate Sodium (Rere-Colace) 1 tab PO BID COUNTS INCLUDE 234 BEDS AT THE [facility] Sennosides (Senokot) 17.2 mg PO Q12H PRN PRN Reason: Moderate Constipation Sodium Chloride (Ns Flush) 2 ml IV.FLUSH BID COUNTS INCLUDE 234 BEDS AT THE [facility] Sodium Chloride (Ns Flush) 2 ml IV.FLUSH PRN PRN PRN Reason: FLUSH AFTER USING IV ACCESS Allergies Allergy/AdvReac Type Severity Reaction Status Date / Time methylprednisolone Allergy Severe Respiratory Verified 05/17/18 21:43 Failure, vomiting Home Medications Medication Instructions Recorded Confirmed Type No Known Home Medications 05/17/18 05/17/18 History Exam Vital signs: Vital Signs 05/17/18 21:30 05/17/18 21:41 05/17/18 21:50 Temperature 98.3 F Pulse Rate 116 H 106 H 98 H Respiratory Rate 26 H 28 H 15 Blood Pressure 247/133 H 207/152 H Pulse Oximetry 93 L 95 05/17/18 21:58 05/17/18 22:01 05/17/18 22:14 Temperature Pulse Rate 97 H 96 H Respiratory Rate 16 26 H Blood Pressure 184/94 H Pulse Oximetry 96 100 05/17/18 22:15 05/17/18 22:30 05/17/18 22:45 Temperature Pulse Rate 108 H 108 H Respiratory Rate 22 22 Blood Pressure 162/78 H 143/66 H Pulse Oximetry 100 100 96 05/17/18 23:00 05/18/18 01:25 Temperature Pulse Rate 104 H 88 Respiratory Rate 20 20 Blood Pressure 166/79 H 116/55 L Pulse Oximetry 97 97 Intake & Output 05/17/18 05/17/18 05/18/18 06:59 18:59 06:59 Intake Total 500 / 500 Balance 500 / 500 Weight 104.326 kg Intake: IV 500 / 500 NS Inj 500 ML @ 1000 mls/hr IV. 500 / 500 SIG BOLUS GOOD Rx#:[id number] Narrative: PE: GENERAL: Pleasant middle-aged white female in no acute distress. SKIN: Focused skin assessment warm and dry. HEENT: PERRLA, EOMI. No scleral icterus or conjunctival pallor. No lid lag or facial droop. CARDIOVASCULAR: Regular rate and rhythm. No obvious murmurs to auscultation. No chest tenderness to palpation. RESPIRATORY: No obvious rhonchi. Diffuse expiratory wheezing. Breath sounds equal bilaterally. GASTROINTESTINAL: Abdomen soft, non-tender, nondistended. BS normal. MUSCULOSKELETAL: Extremities without clubbing, cyanosis, or edema. No obvious deformities. NEUROLOGICAL: Awake, alert and oriented x4. No focal neurologic deficits. Moving both upper and lower extremities spontaneously. PSYCHIATRIC: Appropriate mood and affect. Insight and judgment normal. Results - Labs CBC & Chem 7: 05/17/18 22:08 05/17/18 22:08 Labs: Short CBC 05/17/18 Range/Units 22:08 WBC 7.1 (4.0-11.0) th/mm3 Hgb 12.6 (11.6-15.3) gm/dL Hct 37.2 (35.0-46.0) % Plt Count 228 (150-450) th/mm3 [facility] 05/17/18 22:08 Sodium 138 Potassium 4.3 Chloride 104 Carbon Dioxide 29.1 BUN 14 Creatinine 1.15 H Calcium 8.7 Cardiac Enzymes 05/17/18 Range/Units 22:08 Total Creatine Kinase 140 (26-192) U/L CK-MB (CK-2) Less than 1.0 (0.5-3.6) ng/mL Troponin I Less than 0.02 L (0.02-0.05) ng/mL Liver Function 05/17/18 Range/Units 22:08 Total Bilirubin 0.2 (0.2-1.0) mg/dL AST 15 (15-37) U/L ALT 22 (10-53) U/L Alkaline Phosphatase 120 H (45-117) U/L Albumin 3.7 (3.4-5.0) g/dL - Imaging Impressions Chest X-Ray 05/17/18 21:56 CONCLUSION: No evidence of acute cardiopulmonary disease. Caprini VTE Risk Assessment Caprini VTE Risk Assessment: No/Low Risk (score <= 1) Caprini Risk Assessment Model: Point Value = 1 Point Value = 2 Point Value = 3 Point Value = 5 Age 41-60 Minor surgery BMI > 25 kg/m2 Swollen legs Varicose veins or History of unexplained or recurrent spontaneous Oral contraceptives or hormone replacement Sepsis (< 1 month) Serious lung disease, including pneumonia (< 1 month) Abnormal pulmonary function Acute myocardial infarction Congestive heart failure (< 1 month) History of inflammatory bowel disease Medical patient at bed rest Age 61-74 Arthroscopic surgery Major open surgery (> 45 min) Laparoscopic surgery (> 45 min) Malignancy Confined to bed (> 72 hours) Immobilizing plaster cast Central venous access Age >= 75 History of VTE Family history of VTE Factor V Leiden Prothrombin [id number] Lupus anticoagulant Anticardiolipin antibodies Elevated serum homocysteine Heparin-induced thrombocytopenia Other congenital or acquired thrombophilia Stroke (< 1 month) Elective arthroplasty Hip, pelvis, or leg fracture Acute spinal cord injury (< 1 month) Prophylaxis Regimen: Total Risk Factor Score Risk Level Prophylaxis Regimen 0-1 Low Early ambulation 2 Moderate Order ONE of the following: *Sequential Compression Device (SCD) *Heparin 5000 units SQ BID 3-4 Higher Order ONE of the following medications: *Heparin 5000 units SQ TID *Enoxaparin/Lovenox 40 mg SQ daily (WT < 150 kg, CrCl > 30 mL/min) *Enoxaparin/Lovenox 30 mg SQ daily (WT < 150 kg, CrCl > 10-29 mL/min) *Enoxaparin/Lovenox 30 mg SQ BID (WT < 150 kg, CrCl > 30 mL/min) AND/OR *Sequential Compression Device (SCD) 5 or more Highest Order ONE of the following medications: *Heparin 5000 units SQ TID (Preferred with Epidurals) *Enoxaparin/Lovenox 40 mg SQ daily (WT < 150 kg, CrCl > 30 mL/min) *Enoxaparin/Lovenox 30 mg SQ daily (WT < 150 kg, CrCl > 10-29 mL/min) *Enoxaparin/Lovenox 30 mg SQ BID (WT < 150 kg, CrCl > 30 mL/min) AND *Sequential Compression Device (SCD) Assessment and Plan - Assessment (1) HTN (hypertension) Code(s): I10 - Essential (primary) hypertension Status: Acute (2) KEYANA (acute kidney injury) Code(s): N17.9 - Acute kidney failure, unspecified Status: Acute (3) Asthma Code(s): J45.909 - Unspecified asthma, uncomplicated Status: Acute (4) Chest pain Code(s): R07.9 - Chest pain, unspecified Status: Acute (5) Tobacco abuse Code(s): Z72.0 - Tobacco use Status: Acute - Plan A/P: 1. HTN: Uncontrolled, due to non-compliance w/ medications, BP 247/133, HR 116 on arrival, s/p Hydralazine 20mg IV x1 in ER, BP currently 116/77, hold additional medications at this time, monitor BP, start Metoprolol PO in am. 2. Chest Pain: notes chest pressure/tightness, now resolved, likely secondary to HTN/Asthma. Initial trop negative, check serial cardiac enzymes, check Lipid Profile/Hgb A1c, start ASA, Statin, Metoprolol. 3. Asthma: w/ Acute Exacerbation, +diffuse wheezing, CXR w/ no acute findings , s/p Albuterol and DuoNeb in ER, continue w/ Albuterol prn, notes ALLERGY to Solu-Medrol, however thinks she's taken PO Prednisone in the past, in light of anaphylactic reaction to Solu-Medrol will hold off on any steroid therapy. 4. KEYANA: Creatinine 1.15, previously 0.91 on 12/06/16, likely due to increased respiratory losses, small bolus, monitor I/O, repeat labs in am. 5. Tobacco Abuse: Pt counselled, declines Ativan fo withdrawal 6. DVT Prophylaxis: Lovenox 7. Social work for d/c planning as needed 8. Case discussed w/ ER physician at length, labs/records/imaging reviewed by me
[2018-05-18 04:46] LABS: Cholesterol 269 mg/dL (120-200); Triglycerides 84 mg/dL (42-150)
[2018-05-18 04:50] LABS: Chol/HDL Ratio 5.18 Ratio; HDL Cholesterol 51.9 mg/dL (40.0-60.0); LDL Cholesterol,Calculated 200 mg/dL (0-99)
[2018-05-18] MEDS ORDERED: Enoxaparin Inj 40 MG/0.4 ML Syringe SQ SCH (09:00)
[2018-05-18] MEDS: Metoprolol Tartrate 25 MG Tablet PO SCH ×2 (09:18→20:51)
[2018-05-18] MEDS: Senna/Docusate Sodium 8.6/50 MG Tablet PO SCH ×2 (09:19→21:54)
[2018-05-18] MEDS: Enoxaparin Inj 40 MG/0.4 ML Syringe SQ SCH (09:20)
[2018-05-18 11:02] LABS: Baso % (Auto) 0.3 % (0.0-2.0); Eos # (Auto) 0.1 th/mm3 (0.0-0.4); Eos % (Auto) 0.7 % (0.0-4.0); Hemoglobin 11.5 gm/dL (11.6-15.3); Lymph # (Auto) 2.1 th/mm3 (1.0-4.8); Lymph % (Auto) 27.1 % (9.0-44.0); Mean Corpuscular Hemoglobin 30.2 pg (27.0-34.0); Mean Corpuscular Volume 91.7 fL (80.0-100.0); Mean Platelet Volume 8.8 fL (7.0-11.0); Mono # (Auto) 0.6 th/mm3 (0.0-0.9); Mono % (Auto) 7.5 % (0.0-8.0); Neut % (Auto) 64.4 % (16.0-70.0); Platelet Count 218 th/mm3 (150-450); Red Blood Count 3.82 mil/mm3 (4.00-5.30); Red Cell Distribution Width 14.5 % (11.6-17.2); White Blood Count 7.8 th/mm3 (4.0-11.0)
[2018-05-18 11:25] LABS: Albumin 3.2 g/dL (3.4-5.0); Anion Gap 9 meq/L (5-15); Aspartate Aminotransferase 9 U/L (15-37); Blood Urea Nitrogen 14 mg/dL (7-18); Calcium 8.7 mg/dL (8.5-10.1); Carbon Dioxide 29.9 meq/L (21.0-32.0); Chloride 105 meq/L (98-107); Glomerular Filtration Rate 69 mL/min (>89); Glucose,Random 134 mg/dL (74-106); Potassium 3.5 meq/L (3.5-5.1); Sodium 144 meq/L (136-145)
[2018-05-18 11:29] LABS: Alanine Aminotransferase 16 U/L (10-53); Alkaline Phosphatase 96 U/L (45-117); Total Protein 6.9 g/dL (6.4-8.2)
--- NOTE | 2018-05-18 13:19 | P.PN ---
Subjective Interval history: Nursing denies any acute changes overnight. Patient says she received a cortisone spinal shot yesterday and her pain management physicians office. Says that she feels somewhat less short of breath today than yesterday. Says she is able to ambulate to the restroom. I can hear her wheezing without my stethoscope. Patient explicitly affirms she did not have any chest pain yesterday. She reports having a tightness in her chest. Physical Exam Vital signs: Vital Signs 05/17/18 21:30 05/17/18 21:41 05/17/18 21:50 Temperature 98.3 F Pulse Rate 116 H 106 H 98 H Respiratory Rate 26 H 28 H 15 Blood Pressure 247/133 H 207/152 H Pulse Oximetry 93 L 95 05/17/18 21:58 05/17/18 22:01 05/17/18 22:14 Temperature Pulse Rate 97 H 96 H Respiratory Rate 16 26 H Blood Pressure 184/94 H Pulse Oximetry 96 100 05/17/18 22:15 05/17/18 22:30 05/17/18 22:45 Temperature Pulse Rate 108 H 108 H Respiratory Rate 22 22 Blood Pressure 162/78 H 143/66 H Pulse Oximetry 100 100 96 05/17/18 23:00 05/18/18 01:25 05/18/18 04:00 Temperature 98.2 F Pulse Rate 104 H 88 94 H Respiratory Rate 20 20 22 Blood Pressure 166/79 H 116/55 L 164/82 H Pulse Oximetry 97 97 92 L 05/18/18 08:00 05/18/18 09:00 05/18/18 11:19 Temperature 98.5 F Pulse Rate 83 82 83 Respiratory Rate 17 17 Blood Pressure 144/75 H Pulse Oximetry 95 05/18/18 12:00 Temperature 98.1 F Pulse Rate 71 Respiratory Rate 19 Blood Pressure 147/80 H Pulse Oximetry 95 Intake & Output 05/17/18 05/18/18 05/18/18 18:59 06:59 18:59 Intake Total 500 / 500 Balance 500 / 500 Weight 104.326 kg Intake: IV 500 / 500 NS Inj 500 ML @ 1000 mls/hr IV. 500 / 500 SIG BOLUS GOOD Rx#:[id number] Other: # Voids 0 Date of Last Bowel Movement 05/17/18 05/17/18 Narrative: Has diffuse expiratory wheezing heard without a stethoscope, much more profound upon actual auscultation, no conversive dyspnea Heart sounds regular rate and rhythm, no murmurs Awake and alert, no acute distress Results - Labs CBC & Chem 7: 05/18/18 10:39 05/18/18 10:39 Laboratory Results - last 24 hr 05/17/18 05/17/18 05/17/18 22:08 22:08 22:08 WBC 7.1 RBC 4.17 Hgb 12.6 Hct 37.2 MCV 89.2 MCH 30.3 MCHC 34.0 RDW 14.0 Plt Count 228 MPV 9.5 Neut % (Auto) 87.9 H Lymph % (Auto) 9.8 [place] % (Auto) 1.1 Eos % (Auto) 0.3 Baso % (Auto) 0.9 Neut # (Auto) 6.2 Lymph # (Auto) 0.7 L [place] # (Auto) 0.1 Eos # (Auto) 0.0 Baso # (Auto) 0.1 WBC Differential . Differential Comment Auto diff final Sodium 138 Potassium 4.3 Chloride 104 Carbon Dioxide 29.1 Anion Gap 5 BUN 14 Creatinine 1.15 H Estimated GFR 58 L Random Glucose 149 H Calcium 8.7 Total Bilirubin 0.2 AST 15 ALT 22 Alkaline Phosphatase 120 H Total Creatine Kinase 140 CK-MB (CK-2) Less than 1.0 Troponin I Less than 0.02 L B-Natriuretic Peptide 34 Total Protein 8.2 Albumin 3.7 Triglycerides Cholesterol LDL Cholesterol, Calc HDL Cholesterol Cholesterol/HDL Ratio 05/18/18 05/18/18 05/18/18 03:40 10:39 10:39 WBC 7.8 RBC 3.82 L Hgb 11.5 L Hct 35.0 MCV 91.7 MCH 30.2 MCHC 33.0 RDW 14.5 Plt Count 218 MPV 8.8 Neut % (Auto) 64.4 Lymph % (Auto) 27.1 [place] % (Auto) 7.5 Eos % (Auto) 0.7 Baso % (Auto) 0.3 Neut # (Auto) 5.0 Lymph # (Auto) 2.1 [place] # (Auto) 0.6 Eos # (Auto) 0.1 Baso # (Auto) 0.0 WBC Differential . Differential Comment Auto diff final Sodium 144 Potassium 3.5 D Chloride 105 Carbon Dioxide 29.9 Anion Gap 9 BUN 14 Creatinine 0.99 Estimated GFR 69 L Random Glucose 134 H Calcium 8.7 Total Bilirubin 0.2 AST 9 L ALT 16 Alkaline Phosphatase 96 Total Creatine Kinase CK-MB (CK-2) Troponin I Less than 0.02 L B-Natriuretic Peptide Total Protein 6.9 D Albumin 3.2 L Triglycerides 84 Cholesterol 269 H LDL Cholesterol, Calc 200 H HDL Cholesterol 51.9 Cholesterol/HDL Ratio 5.18 - Imaging Impressions Chest X-Ray 05/17/18 21:56 CONCLUSION: No evidence of acute cardiopulmonary disease. Assessment and Plan - Assessment (1) HTN (hypertension) Code(s): I10 - Essential (primary) hypertension Status: Acute (2) KEYANA (acute kidney injury) Code(s): N17.9 - Acute kidney failure, unspecified Status: Acute (3) Asthma Code(s): J45.909 - Unspecified asthma, uncomplicated Status: Acute (4) Chest pain Code(s): R07.9 - Chest pain, unspecified Status: Acute (5) Tobacco abuse Code(s): Z72.0 - Tobacco use Status: Acute - Plan 62-year-old black female admitted for shortness of breath [facility] patient willing to undergo trial of Solu-Medrol given that she did fine with a cortisone shot yesterday -We will keep on telemetry given that she has a charted allergy to Solu-Medrol which is very questionable, patient herself is very doubtful of slowly blaming Solu-Medrol for any exact side effect Acute kidney injury -Already improved with IV fluids since yesterday Addendum: Patient reported getting nauseated in the middle of her Solu-Medrol push, I attended to her by her bedside, monitored her with a pulse ox with O2 ranging from 90-93%, she remained in an unlabored state. She did appear a little anxious. Reported getting nauseated mild spit up, says the nausea went away and is requesting something for itching. She denies feeling short of breath at this time. 5 minutes after receiving the Solu-Medrol she has calmed down and is resting comfortably.
[2018-05-18 14:06] LABS: Hemoglobin A1c 6.3 % (4.3-6.0)
[2018-05-18] MEDS ORDERED: RESP: Acetylcysteine 10% 4 ML Neb NEB PRN (15:00)
[2018-05-18] MEDS: MethylPREDNISolone Sod Succinate Inj 125 MG/2 ML Vial IV.PUSH SCH ×2 (15:06→22:36)
[2018-05-19] MEDS: Senna/Docusate Sodium 8.6/50 MG Tablet PO SCH (08:17)
[2018-05-19] MEDS: Enoxaparin Inj 40 MG/0.4 ML Syringe SQ SCH (08:17)
[2018-05-19] MEDS: Metoprolol Tartrate 25 MG Tablet PO SCH (08:17)
[2018-05-19] MEDS: MethylPREDNISolone Sod Succinate Inj 125 MG/2 ML Vial IV.PUSH SCH (08:52)
--- NOTE | 2018-05-19 15:09 | P.PN ---
Subjective Interval history: Nursing denies any acute changes overnight, tolerated her Solu-Medrol dose as well so far. Patient herself says she feels much better, no shortness of breath at rest. However nursing notes that patient gets very winded upon walking around the nursing station. Physical Exam Vital signs: Vital Signs 05/18/18 16:00 05/18/18 19:32 05/18/18 19:38 Temperature 98.6 F Pulse Rate 81 78 Respiratory Rate 19 22 22 Blood Pressure 169/82 H 186/83 H Pulse Oximetry 95 94 L 05/18/18 20:27 05/18/18 21:21 05/18/18 23:52 Temperature 98.6 F Pulse Rate 84 68 Respiratory Rate 19 22 Blood Pressure 158/108 H 186/89 H Pulse Oximetry 95 05/19/18 03:32 05/19/18 04:38 05/19/18 07:38 Temperature 98.2 F 98.3 F Pulse Rate 76 80 66 Respiratory Rate 22 18 Blood Pressure 194/91 H 178/80 H 187/91 H Pulse Oximetry 94 L 93 L 05/19/18 08:00 05/19/18 12:00 Temperature 98.4 F Pulse Rate 69 Respiratory Rate 18 Blood Pressure 165/80 H Pulse Oximetry 95 95 Intake & Output 05/18/18 05/19/18 05/19/18 18:59 06:59 18:59 Intake Total 800 / 800 Balance 800 / 800 Intake: Oral 800 / 800 Other: # Voids 4 Date of Last Bowel Movement 05/17/18 05/17/18 Narrative: Patient sleeping comfortably no acute distress Has very audible Wheezing upon auscultation in both lung keating Heart sounds regular rate and rhythm, no murmurs Results - Labs CBC & Chem 7: 05/18/18 10:39 05/18/18 10:39 Assessment and Plan - Assessment (1) HTN (hypertension) Code(s): I10 - Essential (primary) hypertension Status: Acute (2) KEYANA (acute kidney injury) Code(s): N17.9 - Acute kidney failure, unspecified Status: Acute (3) Asthma Code(s): J45.909 - Unspecified asthma, uncomplicated Status: Acute (4) Chest pain Code(s): R07.9 - Chest pain, unspecified Status: Acute (5) Tobacco abuse Code(s): Z72.0 - Tobacco use Status: Acute - Plan 62-year-old black female admitted for shortness of breath, KEYANA. AK I resolved. Asthma exacerbation Continue duo nebs -Continue scheduled Solu-Medrol dosing Hypertension uncontrolled Starting losartan and nifedipine Addendum: Patient was reevaluated in the afternoon, did better with minimal dyspnea on exertion. 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 Patient has been maximal benefit from hospitalization is clinically stable for discharge home. Patient was emphatically instructed to comply with her medication regimen.
--- NOTE | 2018-05-19 17:42 | ECG ---
Date Performed: 05/17/2018 Time Performed: 23:15:58 PTAGE: 62 years EKG: SINUS TACHYCARDIA NONSPECIFIC ST & T-WAVE ABNORMALITY ABNORMAL RHYTHM ECG PREVIOUS TRACING : 12/05/2016 06.46 DOCTOR: Casey Chavez Interpretating Date/Time 05/19/2018 17:29:44
== END 2018-05-19 18:27 | disposition home or self-care (01) ==
LOC: NEPC 21:29 → NEDA 21:29 → NEPGCP 05-18 02:14
PROVIDERS: ADMIT Hospitalist; ATTEND Hospitalist
DX: J45.901 Unspecified asthma with (acute) exacerbation; Z91.14 Patient's other noncompliance with medication regimen; K21.9 Gastro-esophageal reflux disease without esophagitis; F17.210 Nicotine dependence, cigarettes, uncomplicated; N17.9 Acute kidney failure, unspecified; I10 Essential (primary) hypertension; R07.89 Other chest pain; I16.0 Hypertensive urgency; J44.9 Chronic obstructive pulmonary disease, unspecified